=== PATIENT | male | born 1990 | race Caucasian/White ===

== ENCOUNTER 2020-01-21 18:05 | Emergency (ER) | payer OTHER, SELFPAY ==
[2020-01-21 18:51] VITALS: BP 141/87; PULSE 73; RESP 20; TEMP 37.1; O2SAT 99
[2020-01-21 18:57] VITALS: BP 142/87; PULSE 73; RESP 20; TEMP 37.1; O2SAT 99; BMI 36.5
--- NOTE | 2020-01-21 19:13 | CT_ITS ---
EXAMINATION: CT SOFT TISSUE NECK WITH CONTRAST CLINICAL INFORMATION: Sore throat. Swelling of the left side. Concern for peritonsillar disease. COMPARISON: Cervical spine CT from 08/26/2019. TECHNIQUE: Multidetector helical imaging was performed in the axial plane following the administration of 60 mL of Omnipaque 350 intravenous contrast. Multiple axial reformats and coronal/sagittal reconstructions were created the technologist workstation for review. This CT examination was performed using dose optimization techniques as appropriate, variously including the following: *Automated exposure control. *Adjustment of mA and/or kV according to patient size (this includes techniques or standardized protocols for targeted exams where dose is matched to indication/reason for exam; i.e. extremities or head). *Use of iterative reconstruction technique. DLP: 630 mGy-cm FINDINGS: Moderate heterogeneous expansion of the left greater than right palatine tonsils. There is phlegmonous fat stranding surrounding the left palatine tonsils with edema of the left greater than right aspects of the soft palate end fat stranding extending into the left parapharyngeal adipose tissue and left submandibular space. No discrete drainable fluid collection demonstrated. No focal lesions demonstrated. No discrete fluid collection within the deep tissues of the neck. The premaxillary, retromaxillary, pterygopalatine fossa, orbital apical, right parapharyngeal, and prelaryngeal adipose tissue is maintained. Normal appearance of the parotid, submandibular, and thyroid glands. Mild to moderately prominent lymph nodes throughout the cervical chains. Level IIa lymph nodes measure up to 2.1 cm on the right and 1.5 cm on the left. Level IIb lymph nodes measure up to 1.8 cm on the right. Level 3 lymph nodes measure up to 1.7 cm on the left. No demonstrated focal lesion or abnormal enhancement within the intrinsic tissues of the tongue or floor of mouth. No focal mass lesion along the mucosal contours of the pharynx and larynx without abnormal enhancement. There is medialization of the right-sided vocal cord and aryepiglottic folds with asymmetric enlargement of the right piriform sinus. Normal appearance of the hyoid bone, thyroid cartilage, or cartilaginous trachea. There is narrowing of the nasopharyngeal airway. Otherwise, the airway remains widely patent. No radiopaque foreign bodies. The atlantooccipital and atlantoaxial articulations remain well aligned. Straightening of the normal cervical lordosis. Otherwise, there is anatomic alignment of the vertebral bodies and posterior elements. No evidence of acute fracture or subluxation of the cervical spine. The vertebral body heights are maintained. The intervertebral disc spaces are maintained. No evidence of epidural collection. There is no prevertebral soft tissue swelling. No retropharyngeal collection. Normal opacification of the cervical arterial and venous structures. The visualized portion of the skull base is without significant abnormalities. The visualized paranasal sinuses are clear. Mild rightward deviation of the nasal septum. The mastoid air cells and middle ear cavities are clear. No demonstrated significant periapical odontogenic disease. CT Upper Chest: The visualized lung apices and upper mediastinum are within normal limits. IMPRESSION: Moderate edematous expansion of the left greater than right palatine tonsils and soft palate. Phlegmonous soft tissue edema extends into the left parapharyngeal and submandibular spaces. No discrete drainable fluid collection or mass lesion demonstrated. Moderate bilateral cervical chain lymphadenopathy. There is medialization of the right-sided vocal cord suggestive of vocal cord paresis.
[2020-01-21 20:19] LABS: MANUAL DIFF FLAG NO
[2020-01-21 20:20] LABS: Basophils Percent Auto 0.1 % (0-2); Eosinophils Absolute Auto 0.1 X10*3/uL (0.0-0.4); Eosinophils Percent Auto 0.8 % (0-4); Hematocrit 43.5 % (42-52); Hemoglobin 13.9 g/dl (14.0-18.0); Imm Gran Abs Auto 0.03 X10*3/uL (0.00-0.03); Imm Gran Pct Auto 0.3 % (0.0-0.4); Lymphocytes Absolute Auto 2.6 X10*3/uL (1.2-4.9); Lymphocytes Percent Auto 23.6 % (20-40); Mean Corpuscular Volume 87.5 fL (80-98); Mean Platelet Volume 10.7 fL (9.4-12.4); Monocytes Absolute Auto 0.7 X10*3/uL (0.1-1.2); Neutrophils Absolute Auto 7.7 X10*3/uL (2.0-8.3); Neutrophils Percent Auto 69.2 % (45-73); Platelet Count 243 X10*3/uL (160-400); Red Blood Count 4.97 X10*6/uL (4.60-5.80); Red Cell Distribution Width 12.8 % (11.0-16.0); White Blood Count 11.1 X10*3/uL (4.8-10.8)
--- NOTE | 2020-01-21 20:24 | ED.URI ---
HPI - URI/Sore Throat General Chief Complaint: Upper Respiratory Symptoms Stated Complaint: SORE THROAT Time Seen by Provider: 01/21/20 18:57 Source: patient Mode of arrival: ambulatory Limitations: no limitations History of Present Illness HPI Narrative: 29yoM c PMHx of asthma presenting to the ED c c/o sore throat x 2 days worse today. Denies any other symptoms complaints of concerns at this time. Related Data Allergies Allergy/AdvReac Type Severity Reaction Status Date / Time Penicillins [PENICILLINS] Allergy Intermediate Facial Verified 01/21/20 19:00 Swelling Review of Systems Review of Systems: Constitutional : No Fever, No Chills, No fatigue, No Malaise ENT/Mouth : No runny nose Eyes: No Discharge Cardiovascular : No Chest Pain, No SOB Respiratory : No Cough, No Sputum, No Wheezing, No Smoke Exposure, No Dyspnea Gastrointestinal : No Nausea, No Vomiting, No Diarrhea Genitourinary : No irregular bleeding, No Dysuria, No Urinary Frequency, No Hematuria, No Urinary Incontinence, No Urgency, No Flank Pain, Musculoskeletal : No Myalgia Skin : No rash Neuro : No Headache Yes all other systems are reviewed and are negative [facility] Past Medical History Attestation statement: The following information was validated with the patient. Medical History Asthma Crushing skull injury Social History Social History Advance Directives: No Advance Directives Information Provided: No Physical Exam Vital Signs: Vital Signs: Vital Signs Temp Pulse Resp BP Pulse Ox 01/21/20 18:57 98.8 F 73 20 142/87 H 99 01/21/20 18:51 98.8 F 73 20 141/87 H 99 Body Mass Index 36.5 Vital signs have been reviewed as normal and appeared to be correct. Blood pressure normal. Heart rate normal. Respiration rate normal. Temperature normal. Oxygen saturation normal. Appearance: Alert. Oriented X3. No acute distress. Head: Normal external exam. Normocephalic. Atraumatic. No Gallegos signs noted. No raccoon eyes noted Eyes: PERRLA. EOMI. Conjunctiva and sclera normal. Eyelids normal. ENT: EAC normal. TM's Normal. Posterior pharynx with moderate erythema and scattered exudate. Uvula appears shifted to the left side. Moist mucous membranes. No trismus noted. No drooling noted. No muffled voice noted. Neck: Normal inspection. Neck supple. FROM. No adenopathy. Thyroid Normal. No meningeal signs. No neck mass noted. CVS: Normal heart rate and rhythm. Heart sound normal. No murmurs noted. Pulses normal throughout. Respiratory: No respiratory distress. Painless inspiration. Breath sounds normal. No wheezes/rales/rhonchi noted. Chest nontender. No accessory muscle usage noted or decreased air movement noted. Abdomen: Soft and nontender. Bowel sounds normal in all 4 quadrants. No distention noted. No organomegaly noted. No visible injury noted. Back: No CVA tenderness. Full range of motion noted. Skin: Skin warm and dry. Normal skin color. Normal skin turgor. No rashes/lesions/lacerations noted. Extremities: No lower extremity edema. Extremities exhibit normal range of motion. Extremities nontender. Neuro: Oriented X 3. No motor deficit. No sensory deficit. Reflexes normal. Course Course Course Narrative: 29yoM c PMHx of asthma presenting to the ED c c/o sore throat x 2 days worse today. Denies any other symptoms complaints of concerns at this time. - Plan: Labs, Blood cultures, lactic acid. obtain a CT scan of soft tissues to evaluate for possible peritonsillar abscess. Obtain a rapid strep. Provide IVF's IV clindamycin and decadron Then re-evaluate. Reevaluation(s) Reevaluation #1: Patient with an elevated white blood cell count otherwise all other labs are within normal limits. Awaiting CT scan of soft tissue neck to evaluate for possible peritonsillar abscess. Will re-evaluate. MDM - URI/Sore Throat MDM Narrative Medical decision making narrative: Bacterial pharyngitis vs peritonsillar abscess Lab Data Attestation: I reviewed the patient's lab results. Result diagrams: 01/21/20 20:08 01/21/20 20:08 Labs: Lab Results 01/21/20 01/21/20 01/21/20 Range/Units 20:08 20:08 20:08 WBC 11.1 H (4.8-10.8) X10*3/uL RBC 4.97 (4.60-5.80) X10*6/uL Hgb 13.9 L (14.0-18.0) g/dl Hct 43.5 (42-52) % MCV 87.5 (80-98) fL MCH 28.0 (27.0-33.0) pg MCHC 32.0 (31.0-36.0) g/dl RDW 12.8 (11.0-16.0) % Plt Count 243 (160-400) X10*3/uL MPV 10.7 (9.4-12.4) fL Immature Gran % (Auto) 0.3 (0.0-0.4) % Neut % (Auto) 69.2 (45-73) % Lymph % (Auto) 23.6 (20-40) % [place] % (Auto) 6.0 (2-11) % Eos % (Auto) 0.8 (0-4) % Baso % (Auto) 0.1 (0-2) % Lymph # (Auto) 2.6 (1.2-4.9) X10*3/uL [place] # (Auto) 0.7 (0.1-1.2) X10*3/uL Eos # (Auto) 0.1 (0.0-0.4) X10*3/uL Baso # (Auto) 0.0 (0.0-0.2) X10*3/uL Abs Immat Gran (auto) 0.03 (0.00-0.03) X10*3/uL Absolute Neuts (auto) 7.7 (2.0-8.3) X10*3/uL Absolute Nucleated RBC 0.000 (0.0-0.012) X10*3/uL Nucleated RBC % (auto) 0.0 (0.0-0.2) /100WBC PT 11.3 (10.8-13.0) SEC INR 1.0 (0.9-1.1) Sodium (135-145) mmol/L Potassium (3.3-5.1) mmol/l Chloride (96-108) mmol/L Carbon Dioxide (22-29) mmol/L Anion Gap (12-20) BUN (9-16) mg/dL Creatinine (0.5-1.4) mg/dL Estim Creat Clear Calc Estimated GFR Random Glucose (60-115) mg/dL Lactic Acid 1.0 (0.5-2.0) mmol/L Calcium (8.4-10.2) mg/dL 01/21/20 Range/Units 20:08 WBC (4.8-10.8) X10*3/uL RBC (4.60-5.80) X10*6/uL Hgb (14.0-18.0) g/dl Hct (42-52) % MCV (80-98) fL MCH (27.0-33.0) pg MCHC (31.0-36.0) g/dl RDW (11.0-16.0) % Plt Count (160-400) X10*3/uL MPV (9.4-12.4) fL Immature Gran % (Auto) (0.0-0.4) % Neut % (Auto) (45-73) % Lymph % (Auto) (20-40) % [place] % (Auto) (2-11) % Eos % (Auto) (0-4) % Baso % (Auto) (0-2) % Lymph # (Auto) (1.2-4.9) X10*3/uL [place] # (Auto) (0.1-1.2) X10*3/uL Eos # (Auto) (0.0-0.4) X10*3/uL Baso # (Auto) (0.0-0.2) X10*3/uL Abs Immat Gran (auto) (0.00-0.03) X10*3/uL Absolute Neuts (auto) (2.0-8.3) X10*3/uL Absolute Nucleated RBC (0.0-0.012) X10*3/uL Nucleated RBC % (auto) (0.0-0.2) /100WBC PT (10.8-13.0) SEC INR (0.9-1.1) Sodium 143 (135-145) mmol/L Potassium 3.5 (3.3-5.1) mmol/l Chloride 107 (96-108) mmol/L Carbon Dioxide 27 (22-29) mmol/L Anion Gap 13 (12-20) BUN 10 (9-16) mg/dL Creatinine 1.00 (0.5-1.4) mg/dL Estim Creat Clear Calc 130.4 Estimated GFR > 60 Random Glucose 91 (60-115) mg/dL Lactic Acid (0.5-2.0) mmol/L Calcium 8.9 (8.4-10.2) mg/dL
[2020-01-21 20:26] LABS: Prothrombin Time 11.3 SEC (10.8-13.0)
[2020-01-21] MEDS: Clindamycin Phosphate/D5W 600 MG/50 ML PIGGYBACK 100 MG IV (20:26)
[2020-01-21] MEDS: 0.9 % Sodium Chloride 1,000 ML 999 ML IVCONT (20:27)
[2020-01-21 20:43] LABS: Anion Gap 13 (12-20); Blood Urea Nitrogen 10 mg/dL (9-16); Calcium 8.9 mg/dL (8.4-10.2); Carbon Dioxide 27 mmol/L (22-29); Chloride 107 mmol/L (96-108); Creatinine Clr Calc Pharmacy 130.4; Estimated Glomerular Filt Rate > 60; Glucose Random 91 mg/dL (60-115); Potassium 3.5 mmol/l (3.3-5.1); Sodium 143 mmol/L (135-145)
[2020-01-21] MEDS: iohexoL 350 MG/ML 100 ML INFUS..BTL IV (20:58)
[2020-01-21 22:13] VITALS: BP 134/76; PULSE 70; RESP 18; TEMP 37.7; O2SAT 99
[2020-01-21] MEDS: dexAMETHasone 2 MG TABLET 10 MG PO (23:27)
== END 2020-01-21 23:41 | disposition home or self-care (01) ==
PROVIDERS: Physician Assistant Medical; Emergency Provider Emergency Medicine
DX: J36 Peritonsillar abscess (principal); J45.909 Unspecified asthma, uncomplicated
CPT/HCPCS: 36415; 70491; 80048; 83605; 85025; 85610; 87040; 87071; 96365; 99284; J8540

== ENCOUNTER 2020-08-24 00:14 | Emergency (ER) | payer MEDICAID, SELFPAY ==
--- NOTE | ~2020-08-24 | CT_ITS ---
EXAMINATION: CT ABDOMEN AND PELVIS WITH CONTRAST CLINICAL INFORMATION: Abdominal pain COMPARISON: None TECHNIQUE: Multidetector volumetric images were obtained from the superior aspect of the liver through the pubic symphysis following administration 85 mL of Omnipaque 350 intravenous contrast. Sagittal and coronal reformatted images were obtained on the technologist's workstation. Oral contrast: No This CT examination was performed using dose optimization techniques as appropriate, variously including the following: *Automated exposure control *Adjustment of mA and/or kV according to patient size (this includes techniques or standardized protocols for targeted exams where dose is matched to indication/reason for exam; i.e. extremities or head) *Use of iterative reconstruction technique DLP: 757 mGy-cm FINDINGS: LUNG BASES: The visualized lung bases are unremarkable. LIVER, GALLBLADDER, AND BILIARY TREE: The liver demonstrates hypoattenuation consistent with steatosis. No biliary ductal dilatation is present. The gallbladder is unremarkable with no evidence of radiopaque gallstones, gallbladder wall thickening, or obvious pericholecystic inflammatory changes. PANCREAS: Unremarkable. SPLEEN: Unremarkable. ADRENAL GLANDS: Unremarkable. KIDNEYS AND URETERS: The kidneys are normal in size, shape, and attenuation. No hydronephrosis, hydroureter, or obstructing calculi seen. No perinephric stranding. BLADDER: Minimally distended and grossly unremarkable. GASTROINTESTINAL TRACT: There is a thick-walled appearance of the ascending, transverse, and to a lesser degree the descending colon consistent with colitis. No evidence of bowel obstruction. The appendix is unremarkable. No free fluid or free air is seen. ABDOMINAL WALL: No significant hernia is appreciated. LYMPH NODES: Scattered mesenteric and retroperitoneal subcentimeter lymph nodes are present, without significant enlargement by size criteria. VASCULAR: Unremarkable. PELVIC VISCERA: Unremarkable. OSSEOUS STRUCTURES: Unremarkable. CT/CT abdomen pelvis w con IMPRESSION: Thick-walled appearance of the ascending, transverse, and to a lesser degree the descending colon, consistent with colitis which may be infectious or inflammatory.
[2020-08-24 01:56] VITALS: BP 112/81; PULSE 71; RESP 16; TEMP 36.6; O2SAT 99; BMI 33.4
[2020-08-24 04:06] LABS: MANUAL DIFF FLAG NO
[2020-08-24 04:18] LABS: Basophils Percent Auto 0.2 % (0-2); Eosinophils Absolute Auto 0.1 X10*3/uL (0.0-0.4); Eosinophils Percent Auto 0.8 % (0-4); Hemoglobin 13.9 g/dl (14.0-18.0); Imm Gran Abs Auto 0.02 X10*3/uL (0.00-0.03); Imm Gran Pct Auto 0.2 % (0.0-0.4); Lymphocytes Absolute Auto 1.9 X10*3/uL (1.2-4.9); Lymphocytes Percent Auto 21.8 % (20-40); Mean Corpuscular HGB Conc 33.1 g/dl (31.0-36.0); Mean Corpuscular Hemoglobin 28.3 pg (27.0-33.0); Mean Corpuscular Volume 85.5 fL (80-98); Mean Platelet Volume 10.7 fL (9.4-12.4); Monocytes Absolute Auto 0.8 X10*3/uL (0.1-1.2); Monocytes Percent Auto 8.7 % (2-11); Neutrophils Percent Auto 68.3 % (45-73); Platelet Count 243 X10*3/uL (160-400); Red Blood Count 4.91 X10*6/uL (4.60-5.80); Red Cell Distribution Width 12.9 % (11.0-16.0); White Blood Count 8.8 X10*3/uL (4.8-10.8)
--- NOTE | 2020-08-24 04:28 | ED.ABDPAIN ---
HPI - Abdominal Pain General Chief Complaint: Abdominal Pain Stated Complaint: abd pain Time Seen by Provider: 08/24/20 01:56 Source: patient Mode of arrival: ambulatory History of Present Illness HPI narrative: This is a 30-year-old male who presents with abdominal discomfort that he describes is sharp and crampy and started yesterday. This is not been associated with any fever, chills, or vomiting but patient has had some mild nausea and several episodes of nonbloody diarrhea. In addition, patient denies any urinary symptoms. He states that he has had this abdominal discomfort previously when he was a child with a ?viral bug?. In addition, patient denies any alcohol use but states that he has smokes marijuana with the last use a few hours prior to presentation. He denies any abdominal surgery history. Related Data Previous Rx's Medication Instructions Recorded acetaminophen [Tylenol Extra 500 mg PO Q6H PRN #20 tab 01/21/20 Strength] clindamycin HCl 450 mg PO Q8H 10 Days #45 cap 01/21/20 ibuprofen 800 mg PO Q8H 7 Days #21 tab 01/21/20 ondansetron HCl [Zofran] 4 mg PO Q8H PRN #7 tab 08/24/20 Allergies Allergy/AdvReac Type Severity Reaction Status Date / Time Penicillins [PENICILLINS] Allergy Intermediate Facial Verified 01/21/20 19:00 Swelling Review of Systems Review of Systems Pertinent positives and negatives as stated in HPI 10 point review of systems is otherwise negative. Physical Exam Vital Signs: Vital Signs: Last Vital Signs Temp 98 F 08/24/20 01:56 Pulse 57 08/24/20 06:00 Resp 18 08/24/20 06:00 BP 120/68 08/24/20 06:00 Pulse Ox 97 08/24/20 06:00 Body Mass Index 33.4 VITAL SIGNS: Reviewed. GENERAL: Well developed, well nourished, in no acute distress. HEAD: Normocephalic/atraumatic EYES: PERRLA, EOMI EARS: Ext canals without abnormality NOSE: Nares patent bilateral OROPHARYNX: no oral lesions noted, posterior pharynx clear NECK: Supple, no adenopathy LUNGS: Normal breath sounds. No adventitious sounds or accessory muscle use. SpO2<99> CARDIOVASCULAR: Regular rate and rhythm without noted murmurs ABDOMEN: Soft, diffusely tender without rebound, non-distended with bowel sounds. NEUROLOGIC: Alert and oriented x 4. Course Course Course Narrative: 30-year-old male with history and clinical presentation suggestive of gastroenteritis, and less likely pancreatitis/appendicitis/UTI. Patient has had no further episodes of diarrhea and CT scan findings consistent with a rios colitis without leukocytosis. Review of all investigations without acute findings other than colitis, although patient has had no further diarrheal episodes or nausea/vomiting. He was informed of all results and findings and instructed to follow-up with his primary care provider by calling the office today. Patient is tolerating oral intake and will be discharged with supplemental Zofran to use p.r.n.. MDM - Abdominal Pain Lab Data Result diagrams: 08/24/20 04:02 08/24/20 04:02 Labs: Lab Results 08/24/20 08/24/20 08/24/20 Range/Units 04:02 04:02 06:26 WBC 8.8 (4.8-10.8) X10*3/uL RBC 4.91 (4.60-5.80) X10*6/uL Hgb 13.9 L (14.0-18.0) g/dl Hct 42.0 (42-52) % MCV 85.5 (80-98) fL MCH 28.3 (27.0-33.0) pg MCHC 33.1 (31.0-36.0) g/dl RDW 12.9 (11.0-16.0) % Plt Count 243 (160-400) X10*3/uL MPV 10.7 (9.4-12.4) fL Immature Gran % (Auto) 0.2 (0.0-0.4) % Neut % (Auto) 68.3 (45-73) % Lymph % (Auto) 21.8 (20-40) % Josephine % (Auto) 8.7 (2-11) % Eos % (Auto) 0.8 (0-4) % Baso % (Auto) 0.2 (0-2) % Lymph # (Auto) 1.9 (1.2-4.9) X10*3/uL Josephine # (Auto) 0.8 (0.1-1.2) X10*3/uL Eos # (Auto) 0.1 (0.0-0.4) X10*3/uL Baso # (Auto) 0.0 (0.0-0.2) X10*3/uL Abs Immat Gran (auto) 0.02 (0.00-0.03) X10*3/uL Absolute Neuts (auto) 6.0 (2.0-8.3) X10*3/uL Absolute Nucleated RBC 0.000 (0.0-0.012) X10*3/uL Nucleated RBC % (auto) 0.0 (0.0-0.2) /100WBC Sodium 141 (135-145) mmol/L Potassium 3.8 (3.3-5.1) mmol/L Chloride 105 (96-108) mmol/L Carbon Dioxide 26 (22-29) mmol/L Anion Gap 14 (12-20) BUN 12 (9-16) mg/dL Creatinine 1.04 (0.5-1.4) mg/dL Estim Creat Clear Calc 118.9 Estimated GFR > 60 Random Glucose 100 (60-115) mg/dL Calcium 9.9 D (8.4-10.2) mg/dL Total Bilirubin 0.4 (0.0-1.0) mg/dL AST 25 (5-37) U/L ALT 43 H (0-40) U/L Alkaline Phosphatase 66 (39-117) U/L Total Protein 7.5 (6.5-8.0) g/dL Albumin 4.4 (3.5-5.0) g/dL Lipase 13 (8-78) U/L Urine Color YELLOW Urine Appearance CLEAR Urine pH 6.0 (5.0-8.0) Ur Specific [place] 1.025 (1.005-1.025) Urine Protein NEG (NEG-TRACE) MG/DL Urine Glucose (UA) NEG (NEG) MG/DL Urine Ketones NEG (NEG) MG/DL Urine Blood TRACE (NEG) Urine Nitrite NEG (NEG) Ur Leukocyte Esterase NEG (NEG) Discharge Plan Discharge Clinical Impression: Colitis Patient Disposition: Home, Self-Care Instructions: Colitis (ED) Additional Instructions: 1. Increase hydration especially with water and combine with Gatorade. 2. Follow-up with your primary care provider by calling the office this morning to set up an appointment for re-evaluation. 3. Use [id number] Tylenol/ibuprofen as needed for symptom relief. Return to the emergency room for any acute worsening of your symptoms. Prescriptions: New ondansetron HCl [Zofran] 4 mg tablet 4 mg PO Q8H PRN (Reason: nausea and vomiting) Qty: 7 RF: 0 No Action clindamycin HCl 300 mg capsule 450 mg PO Q8H 10 Days Qty: 45 RF: 0 ibuprofen 800 mg tablet 800 mg PO Q8H 7 Days Qty: 21 RF: 0 acetaminophen [Tylenol Extra Strength] 500 mg tablet 500 mg PO Q6H PRN (Reason: pain or fever) Qty: 20 RF: 0 Referrals: Physician,None [Primary Care Provider] - 2 days Stand Alone Forms: Work/School Release [facility] Past Medical History Source: nursing notes reviewed Medical History Asthma Crushing skull injury Social History Social History Advance Directives: No Advance Directives Information Provided: No
[2020-08-24 04:41] LABS: Alanine Aminotransferase 43 U/L (0-40); Albumin Level 4.4 g/dL (3.5-5.0); Alkaline Phosphatase 66 U/L (39-117); Anion Gap 14 (12-20); Aspartate Amino Transferase 25 U/L (5-37); Bilirubin Total 0.4 mg/dL (0.0-1.0); Blood Urea Nitrogen 12 mg/dL (9-16); Calcium 9.9 mg/dL (8.4-10.2); Carbon Dioxide 26 mmol/L (22-29); Chloride 105 mmol/L (96-108); Creatinine Clr Calc Pharmacy 118.9; Estimated Glomerular Filt Rate > 60; Glucose Random 100 mg/dL (60-115); Lipase 13 U/L (8-78); Potassium 3.8 mmol/L (3.3-5.1); Sodium 141 mmol/L (135-145); Total Protein 7.5 g/dL (6.5-8.0)
[2020-08-24] MEDS: Ketorolac Tromethamine 15 MG/ML VIAL IVPUSH (04:56)
[2020-08-24 06:00] VITALS: BP 120/68; PULSE 57; RESP 18; O2SAT 97
[2020-08-24] MEDS: iohexoL 350 MG/ML 100 ML INFUS..BTL 85 ML IV (06:02)
[2020-08-24 06:38] LABS: Glucose Urine UA NEG (NEG); Leukocyte Esterase Urine NEG (NEG); Nitrite Urine NEG (NEG); Specific Gravity - Urine 1.025 (1.005-1.025); Urine Blood TRACE (NEG); Urine Ketones NEG (NEG); Urine Protein NEG (NEG-TRACE)
[2020-08-24 06:43] LABS: Appearance Urine CLEAR; Color Urine YELLOW
[2020-08-24 06:51] LABS: Mucus Urine TRACE /LPF; RBC Urine 0-2 /HPF (0); Squamous Epithelial Cell Urine TRACE /LPF; WBC Urine 0 /HPF (0-4)
[2020-08-24 07:03] LABS: Amphetamine Screen Urine Not Detected (Not Detect); Barbiturates, Urine Not Detected (Not Detect); Benzodiazepines Screen Urine Not Detected (Not Detect); Cannabinoid Screen Urine POSITIVE (Not Detect); Cocaine Screen Urine POSITIVE (Not Detect); Opiate Screen Urine Not Detected (Not Detect); Phencyclidine Screen Urine Not Detected (Not Detect)
[2020-08-24 07:19] VITALS: BP 132/73; PULSE 62; RESP 17; TEMP 37; O2SAT 99
== END 2020-08-24 07:27 | disposition home or self-care (01) ==
PROVIDERS: Emergency Provider Student in an Organized Health Care Education/Training Program
DX: K52.9 Noninfective gastroenteritis and colitis, unspecified (principal); Z79.899 Other long term (current) drug therapy
CPT/HCPCS: 36415; 74177; 80053; 80307; 81001; 83690; 85025; 96365; 96375; 99284; J1885; Q9967

== ENCOUNTER 2020-10-31 14:19 | Emergency (ER) | payer MEDICAID, SELFPAY ==
[2020-10-31 14:50] VITALS: BP 116/75; PULSE 82; RESP 18; TEMP 36.8; O2SAT 98; BMI 34.0
== END 2020-10-31 16:54 | disposition left against medical advice (07) ==
PROVIDERS: Emergency Provider Emergency Medicine
DX: S71.152A Open bite, left thigh, initial encounter (principal); W54.0XXA Bitten by dog, initial encounter; Y93.01 Activity, walking, marching and hiking; Y92.480 Sidewalk as the place of occurrence of the external cause; Y99.8 Other external cause status
CPT/HCPCS: 99281; 99282

== ENCOUNTER 2020-11-01 07:56 | Emergency (ER) | payer MEDICAID, SELFPAY ==
[2020-11-01 08:21] VITALS: BP 123/76; PULSE 72; RESP 16; TEMP 37; O2SAT 98
[2020-11-01 09:10] VITALS: BP 108/69; PULSE 63; RESP 16; TEMP 36.7; O2SAT 97; BMI 32.4
--- NOTE | 2020-11-01 09:16 | ED.ANIMALBIT ---
HPI - Animal Bite General Chief Complaint: Animal Bite Stated Complaint: dog bite Time Seen by Provider: 11/01/20 09:13 Source: patient Mode of arrival: ambulatory Limitations: no limitations History of Present Illness HPI narrative: 30 yo male here with dog bite to left posterior thigh which occurred yesterday. Walking in the park and an unknown dog came and chased him, biting his leg. Dog unknown. Here for rabies series. Last tetanus unknown MD complaint: animal bite Related Data Previous Rx's Medication Instructions Recorded acetaminophen 500 mg tablet 500 mg PO Q6H PRN #20 tab 01/21/20 (Tylenol Extra Strength) clindamycin HCl 300 mg capsule 450 mg PO Q8H 10 Days #45 cap 01/21/20 ibuprofen 800 mg tablet 800 mg PO Q8H 7 Days #21 tab 01/21/20 ondansetron HCl 4 mg tablet 4 mg PO Q8H PRN #7 tab 08/24/20 (Zofran) Allergies Allergy/AdvReac Type Severity Reaction Status Date / Time Penicillins [PENICILLINS] Allergy Intermediate Facial Verified 11/01/20 09:15 Swelling Review of Systems Review of Systems: Yes all other systems are reviewed and are negative Constitutional: Constitutional: Reports no additional constitutional complaints, Denies body ache(s), Denies chills, Denies fever(s), Denies headache(s) and Denies weakness Eyes: Eyes: Reports no additional eye complaints and Denies change in vision ENT: Reports system reviewed and no additional complaints, except as documented, Denies dizziness, Denies headache(s), Denies nasal congestion, Denies nasal discharge and Denies neck pain Cardiovascular: Cardiovascular: Reports no additional cardiovascular complaints, Denies chest pain, Denies leg edema and Denies dyspnea Respiratory: Respiratory: Reports no additional respiratory complaints, Denies cough and Denies dyspnea Gastrointestinal: Gastrointestinal: Reports no additional gastrointestinal complaints, Denies abdominal pain, Denies diarrhea, Denies nausea and Denies vomiting Genitourinary: Genitourinary: Denies urinary incontinence Musculoskeletal: Musculoskeletal: Reports no additional musculoskeletal complaints, Denies back pain, Denies arthralgias, Denies joint swelling, Denies neck pain, Denies numbness and Denies tingling Integumentary/Breasts: Skin/Breast: Reports system reviewed and no additional complaints, except as docu and Denies rash Neurologic: Reports system reviewed and no additional complaints, except as documented, Denies Abnormal speech present, Denies dizziness, Denies headache(s), Denies numbness, Denies tingling and Denies weakness PMFSH Past Medical History Attestation statement: The following information was validated with the patient. Source: old records reviewed and nursing notes reviewed Medical History Asthma Crushing skull injury Social History Social History Advance Directives: No Advance Directives Information Provided: No Physical Exam Vital Signs: Vital Signs: Last Vital Signs Temp 98.0 F 11/01/20 09:10 Pulse 63 11/01/20 09:10 Resp 16 11/01/20 09:10 BP 108/69 11/01/20 09:10 Pulse Ox 97 11/01/20 09:10 Body Mass Index 32.4 Const: General: cooperative, healthy appearing, comfortable and no acute distress Orientation/consciousness: patient oriented x3 Limitations: no limitations HENMT: Head: Yes normal to inspection Ears: hearing grossly normal bilaterally General nose exam: Normal external nose present Face and sinus: Yes normal facial exam Mouth: Normal oral and palatal mucosa present Throat: Yes posterior oropharynx normal Eyes: General: appearance normal, both eyes and all related structures Pupils: Equal, round and reactive pupils present Neck: Neck: Yes normal visual inspection Chest: Chest palpation & inspection: normal inspection of the chest Resp: Effort & Inspection: normal respiratory effort Auscultation: clear to auscultation bilaterally Cardio: Rate: regular rate Rhythm: regular rhythm Peripheral pulses: Peripheral pulses 2+ throughout GI: Inspection: Yes normal to inspection Palpation (GI): Soft to palpation and nontender Auscultation: normal bowel sounds Back/Spine/Pelvis: Thoracic/Lumbar Spine: thoracic and lumbar spine normal to inspection Skin: General skin exam: no rashes or lesions noted Neuro: General: patient oriented x3, no focal motor deficits and normal sensation to monofilament Cranial nerves: Yes Equal, round and reactive pupils present Cognition (Neuro): normal cognition Speech: No Abnormal speech present Gait exam (Neuro): Normal gait present Motor exam (neuro): 5/5 motor strength present throughout Extrem: Other: to posterior left upper thigh there is a small area of ecchymosis noted with 2 ?bite juarez. General: Yes normal to inspection Course Course Course Narrative: Dog bite from stray dog yesterday. Will need hyperrab, rabies vaccine and tetanus updated. MDM - Animal Bite Differential Diagnosis Differential diagnosis: Likely dog bite Medical Records Attestation: I reviewed the patient's medical records. Lab Data Attestation: I reviewed the patient's lab results. Discharge Plan Discharge Clinical Impression: Dog bite Qualifiers: Encounter type: initial encounter Qualified Code(s): W54.0XXA - Bitten by dog, initial encounter Patient Disposition: Home, Self-Care Instructions: Rabies Vaccine (By injection), Rabies Immune Globulin (By injection), Animal Bite (ED), Rabies (ED) Additional Instructions: Follow schedule for additional doses of rabies vaccine Prescriptions: No Action clindamycin HCl 300 mg capsule 450 mg PO Q8H 10 Days Qty: 45 RF: 0 ibuprofen 800 mg tablet 800 mg PO Q8H 7 Days Qty: 21 RF: 0 acetaminophen [Tylenol Extra Strength] 500 mg tablet 500 mg PO Q6H PRN (Reason: pain or fever) Qty: 20 RF: 0 ondansetron HCl [Zofran] 4 mg tablet 4 mg PO Q8H PRN (Reason: nausea and vomiting) Qty: 7 RF: 0 Referrals: [facility] [Primary Care Provider] - 2 days Interventions: ED Discharge Assessment Last Done: 11/01/20 11:01 Discharge Date/Time: 11/01/20 11:03
[2020-11-01] MEDS: Rabies Immune Globulin/PF 1,500 UNIT/5 ML VIAL 1992 UNIT IM (10:38)
[2020-11-01] MEDS: Rabies Vaccine (PCEC)/PF 1 ML VIAL IM (10:39)
[2020-11-01] MEDS: Diphth,Pertus(ACell),Tet Adult 0.5 ML SYRINGE IM (10:44)
== END 2020-11-01 11:03 | disposition home or self-care (01) ==
PROVIDERS: Emergency Provider Emergency Medicine
DX: S71.152A Open bite, left thigh, initial encounter (principal); M79.605 Pain in left leg; W54.0XXA Bitten by dog, initial encounter; Y93.9 Activity, unspecified; Y92.830 Public park as the place of occurrence of the external cause; Y99.9 Unspecified external cause status; Z79.899 Other long term (current) drug therapy
CPT/HCPCS: 90375; 90471; 90675; 90715; 96372; 99284

== ENCOUNTER 2020-11-04 09:53 | Outpatient (REF) | payer MEDICAID, SELFPAY | END 2020-11-04 09:54 | disposition home or self-care (01) | LOC: HO.MDS 09:53 | PROVIDERS: Visit Provider Nurse Practitioner Family | DX: Z29.14 Encounter for prophylactic rabies immune globulin (principal); S70.372D Other superficial bite of left thigh, subsequent encounter; W54.0XXD Bitten by dog, subsequent encounter; Z20.3 Contact with and (suspected) exposure to rabies | CPT/HCPCS: 90471; 90675 ==

== ENCOUNTER 2020-11-08 13:52 | Outpatient (REF) | payer MEDICAID, SELFPAY | END 2020-11-08 13:53 | disposition home or self-care (01) | LOC: HO.MDS 13:52 | PROVIDERS: Visit Provider Nurse Practitioner Family | DX: Z29.14 Encounter for prophylactic rabies immune globulin (principal); S71.152D Open bite, left thigh, subsequent encounter; W54.0XXD Bitten by dog, subsequent encounter; Z20.3 Contact with and (suspected) exposure to rabies | CPT/HCPCS: 90471; 90675 ==

== ENCOUNTER 2021-01-23 13:20 | Outpatient (REF) | payer MEDICAID, SELFPAY | END 2021-01-23 13:21 | disposition home or self-care (01) | LOC: HO.LAB 13:20 | PROVIDERS: Visit Provider Internal Medicine | DX: Z20.822 Contact with and (suspected) exposure to COVID-19 (principal) | CPT/HCPCS: C9803; U0003; U0005 ==

== ENCOUNTER 2021-05-02 15:24 | Outpatient (REF) | payer BC, SELFPAY ==
--- NOTE | ~2021-05-02 | US_ITS ---
EXAMINATION: US SOFT TISSUE NECK CLINICAL INFORMATION: Localized swelling, mass or lump COMPARISON: Previous CT of the neck January 2020 TECHNIQUE: Grayscale and color imaging of the soft tissues of the left neck. FINDINGS: There are abnormal appearing left cervical lymph nodes. Largest lymph node measures 3.8 x 6.2 x 2.8 cm in transverse longitudinal and AP dimension. This demonstrates abnormal morphology with cortical thickening and slitlike hilum and abnormal cortical flow. There are other smaller left cervical lymph nodes. This is new or increased compared to January 2020 exam. US/US soft tiss head and/or neck IMPRESSION: Enlarged abnormal appearing left cervical lymph nodes. Neoplastic process should be excluded. This would be amenable to ultrasound-guided biopsy.
== END 2021-05-02 15:25 | disposition home or self-care (01) ==
LOC: HO.US 15:24
PROVIDERS: PCP Family Medicine; Visit Provider Hospitalist
DX: R13.10 Dysphagia, unspecified (principal); R22.1 Localized swelling, mass and lump, neck
CPT/HCPCS: 76536

== ENCOUNTER 2021-05-03 09:41 | Outpatient (REF) | payer BC, SELFPAY ==
[2021-05-03 10:18] LABS: Hemoglobin 13.9 g/dl (14.0-18.0); Mean Corpuscular HGB Conc 32.3 g/dl (31.0-36.0); Mean Corpuscular Volume 86.5 fL (80.0-98.0); Mean Platelet Volume 10.6 fL (9.4-12.4); Platelet Count 263 X10*3/uL (160-400); Red Blood Count 4.97 X10*6/uL (4.60-5.80); Red Cell Distribution Width 12.9 % (11.0-16.0); White Blood Count 8.1 X10*3/uL (4.8-10.8)
[2021-05-03 10:42] LABS: Anion Gap 11 (12-20); Blood Urea Nitrogen 11 mg/dL (9-16); Calcium 10.1 mg/dL (8.4-10.2); Carbon Dioxide 31 mmol/L (22-29); Chloride 105 mmol/L (96-108); Estimated Glomerular Filt Rate > 60; Glucose Random 93 mg/dL (60-115); Potassium 4.2 mmol/L (3.3-5.1); Sodium 143 mmol/L (135-145)
== END 2021-05-03 09:42 | disposition home or self-care (01) ==
LOC: HO.LAB 09:41
PROVIDERS: PCP Family Medicine; Visit Provider Hospitalist
DX: R13.10 Dysphagia, unspecified (principal); R22.1 Localized swelling, mass and lump, neck
CPT/HCPCS: 36415; 80048; 85027

== ENCOUNTER 2021-05-08 10:41 | Outpatient (REF) | payer BC, SELFPAY ==
--- NOTE | ~2021-05-08 | US_ITS ---
EXAMINATION: ULTRASOUND-GUIDED BIOPSY LYMPH NODE CLINICAL INFORMATION: Enlarged left cervical lymph node. COMPARISON: Previous soft tissue neck ultrasound 05/02/2021. TECHNIQUE: Procedure and risks and benefits including bleeding and infection were discussed with the patient and informed consent was obtained. Left neck was prepped and draped in the usual sterile fashion. The skin and soft tissues were anesthetized with 1% lidocaine plain. Using ultrasound guidance and a coaxial system, access to the enlarged left cervical lymph node was obtained. 5 18-gauge core biopsies were obtained. 3 specimens were placed in flow cytometry solution and 2 specimens were placed in formalin. FINDINGS: There is an enlarged left lower cervical lymph node measuring 6.3 x 3.1 x 4.1 cm that was targeted for biopsy. US/US biopsy lymph node IMPRESSION: Ultrasound-guided left neck lymph node biopsy.
[2021-05-08] MEDS: Lidocaine HCl 1 % MPF 5 ML VIAL 4 ML SUBCUT (11:45)
== END 2021-05-08 10:42 | disposition home or self-care (01) ==
LOC: HO.US 10:41
PROVIDERS: Radiology Diagnostic Radiology; Visit Provider Family Medicine
DX: R59.0 Localized enlarged lymph nodes (principal)
CPT/HCPCS: 36415; 38505; 76942; 88184; 88185; 88300; 88305; 88312; 88313; 88341; 88342

== ENCOUNTER → 2021-06-12 10:37 | Outpatient (BNVA) | payer BC, SELFPAY | PROVIDERS: PCP Family Medicine; Referring Provider Family Medicine; Visit Provider Surgery ==

== ENCOUNTER 2021-06-24 08:02 | Outpatient (REF) | payer BC, SELFPAY ==
--- NOTE | ~2021-06-24 | CT_ITS ---
CT SOFT TISSUE NECK WITH CONTRAST CLINICAL INFORMATION: Localized swelling. Mass/lump. COMPARISON: Neck CT 01/21/2020. Ultrasound 05/02/2021. TECHNIQUE: Following the intravenous administration of 60 mL of Omnipaque 350 intravenous contrast, helical imaging was performed in the axial plane with generation of coronal and sagittal reformatted images. This CT examination was performed using dose optimization techniques as appropriate, variously including the following: *Automated exposure control *Adjustment of mA and/or kV according to patient size (this includes techniques or standardized protocols for targeted exams where dose is matched to indication/reason for exam; i.e. extremities or head) *Use of iterative reconstruction technique FINDINGS: There is a large mass within level 3 of the left neck measuring up to 3.5 cm TV by 3.8 cm AP by 6.5 cm CC. This previously measured 2.8 cm x 3.8 cm x 6.2 cm on 05/02/2021 ultrasound and 1.2 cm on the neck CT from 01/21/2020. There are also multiple enlarged lymph nodes just below the dominant lesion within level IV and there are nonspecific nonpathologic size criteria lymph nodes throughout the suprahyoid and infrahyoid neck bilaterally. A neoplastic etiology remains of concern. Recommend correlating with the recent biopsy results and follow-up with PET/CT as clinically indicated. The parotid glands are homogeneous in attenuation. The submandibular glands are normal. The thyroid gland is normal. Asymmetric fullness and irregularity of the left palatine tonsil can be correlated with direct visual inspection and PET to exclude a lesion in this location. No retropharyngeal fluid collection is seen. The laryngeal structures are normal. There is mucosal irregularity involving the vallecular mucosal surface of the base of tongue that should be correlated with direct visual inspection. The parapharyngeal fat is preserved. The carotid sheath vasculature opacify normally. The superior mediastinum is unremarkable. The lung apices are clear. No acute or suspicious osseous findings. There is mild mucosal thickening within the right sphenoid sinus and throughout the ethmoid air cells bilaterally as well as within the maxillary sinuses bilaterally. The imaged portions of the brain parenchyma are unremarkable. CT/CT soft tissue neck w con IMPRESSION: - There is a large mass within level 3 of the left neck measuring up to 3.5 cm TV by 3.8 cm AP by 6.5 cm CC. This previously measured 2.8 cm x 3.8 cm x 6.2 cm on 05/02/2021 ultrasound and 1.2 cm on the neck CT from 01/21/2020. There are also multiple enlarged lymph nodes just below the dominant lesion within level IV and there are nonspecific nonpathologic size criteria lymph nodes throughout the suprahyoid and infrahyoid neck bilaterally. A neoplastic etiology remains of concern. Recommend correlating with the recent biopsy results and follow-up with PET/CT as clinically indicated. - Asymmetric fullness and irregularity of the left palatine tonsil can be correlated with direct visual inspection and PET to exclude a lesion in this location. - There is mucosal irregularity involving the vallecular mucosal surface of the base of tongue that should be correlated with direct visual inspection.
[2021-06-24] MEDS: iohexoL 350 MG/ML 100 ML INFUS..BTL 60 ML IV (08:48)
== END 2021-06-24 08:03 | disposition home or self-care (01) ==
LOC: HO.CT 08:02
PROVIDERS: Visit Provider Surgery
DX: R22.1 Localized swelling, mass and lump, neck (principal)
CPT/HCPCS: 70491; Q9967

== ENCOUNTER → 2021-07-11 13:58 | Outpatient (BNVA) | payer BC, SELFPAY | PROVIDERS: PCP Family Medicine; Referring Provider Family Medicine; Visit Provider Surgery | DX: Z13.89 Encounter for screening for other disorder (principal) ==

== ENCOUNTER 2021-08-25 20:14 | Emergency (ER) | payer MEDICAID, SELFPAY ==
[2021-08-25 20:21] VITALS: BP 113/77; PULSE 83; RESP 18; TEMP 36.9; O2SAT 97; BMI 34.9
[2021-08-25 20:38] LABS: Appearance Urine CLEAR; Color Urine YELLOW; Glucose Urine UA NEG (NEG); Leukocyte Esterase Urine NEG (NEG); Nitrite Urine NEG (NEG); PH 7.5 (5.0-8.0); Specific Gravity - Urine 1.015 (1.005-1.025); Urine Blood NEG (NEG); Urine Ketones NEG (NEG); Urine Protein NEG (NEG-TRACE)
--- NOTE | 2021-08-25 22:34 | ED.MALEGU ---
HPI - Male Genitourinary General Chief complaint: Urogenital-Male Stated complaint: std check? Time Seen by Provider: 08/25/21 22:08 Source: patient Mode of arrival: ambulatory Limitations: no limitations History of Present Illness HPI Narrative: Patient comes to emergency room complaining of a painful vesicle in his penis 2 days ago. Patient complaining dysuria, no penile discharge. No fever chills, no hematuria. Patient states that wearing clothes-on hurts his penis quite a bit. Patient has tried topical antibiotics with no relief. Related Data Previous Rx's Medication Instructions Recorded acyclovir 400 mg tablet 400 mg PO TID 7 Days #21 tab 08/25/21 Allergies Allergy/AdvReac Type Severity Reaction Status Date / Time Penicillins [PENICILLINS] Allergy Intermediate Facial Verified 08/25/21 20:21 Swelling Review of Systems Review of Systems: Constitutional : No Weight loss, No Fever, No Chills, No Night Sweats, No Fatigue, No Malaise ENT/Mouth : No Hearing loss, No Ear Pain, No Nasal Congestion, No Sinus Pain, No Hoarseness, No sore throat, No Rhinorrhea, No Swallowing Difficulty Eyes: No Eye Pain, No Swelling, No Redness, No Foreign Body, No Discharge, No Vision Changes Cardiovascular : No Chest Pain, No SOB, No Dyspnea on Exertion, No Orthopnea, No Edema, No Palpitations Respiratory : No Cough, No Sputum, No Wheezing, No Smoke Exposure, No Dyspnea Gastrointestinal : No Nausea, No Vomiting, No Diarrhea, No Constipation, No abdominal Pain, No Hematochezia, No Melena Genitourinary : no irregular bleeding, No Dysuria, No Urinary Frequency, No Hematuria, No Urinary Incontinence, No Urgency, No Flank Pain, No Urinary Flow Changes, No Hesitancy, complaining of painful vesicle in the penis Musculoskeletal : No joint pain, No Myalgias, No Joint Swelling Skin : No Skin Lesions, No rash Neuro : No Weakness, No Numbness, No Paresthesias, No Loss of Consciousness, No Dizziness, No Headache Psych : No Anxiety/Panic, No Depression, No SI/HI/AH/VH, No Social Issues, Heme/Lymph: No Bruising, No Bleeding,No Lymphadenopathy Endocrine : No Polyuria, No Polydipsia, No Temperature Intolerance PMFSH Past Medical History Medical History Asthma Crushing skull injury Mass of left side of neck Social History Social History Housing: Apartment Patient Tobacco Use Status: Former Tobacco user Quit Date: 2019 e-Cigarette/Vaping Use: Never Used Second Hand Smoke Exposure: No Use of substances other than those prescribed or required for medical reasons: No Substance Use Type: Marijuana Advance Directives: No Advance Directives Information Provided: No service: No Current occupational status: employed Current occupational exposures/hazards: No Cognitive needs: No Hearing needs: No Vision needs: No Physical Exam Vital Signs: Vital Signs: Last Vital Signs Temp 98.4 F 08/25/21 20:21 Pulse 83 08/25/21 20:21 Resp 18 08/25/21 20:21 BP 113/77 08/25/21 20:21 Pulse Ox 97 08/25/21 20:21 BMI result Body Mass Index 34.9 Const: Other: Appearance: Alert. Oriented X3. No acute distress. Eyes: Pupils equal, round and reactive to light. ENT: Pharynx normal. Neck: Normal inspection. Neck supple. No lymph nodes noted. No crepitus CVS: Normal heart rate and rhythm. Pulses normal. Normal S1 and S2 Respiratory: No respiratory distress. Breath sounds normal. No Wheezing. No rales Abdomen: Soft and nontender. No rigidity. No distention. : No penile discharge, uncircumcised, 1 single vesicle in the lateral aspect of the right side of the glans Skin: Skin warm and dry. Normal skin color. Normal skin turgor. Extremities: No lower extremity edema. No Lacerations. No Rash Neuro: Oriented X 3. No motor deficit. No sensory deficit. Moving all extremities. No slurred speech. CN 2 through 12 grossly intact Psych: calm, cooperative, normal affect Course Course Course Narrative: I discussed with the patient that this is likely herpes. Patient will get further testing [facility] by his primary [facility] or [facility] collected urine, patient will be tested for gonorrhea and chlamydia. Patient declined prophylactic treatment. I discussed with the patient that it is not 100% clear that this is herpes but the likelihood is high. Patient states that the rubbing of his underwear in his genitals is extremely uncomfortable, his work is very physical and is concerned that the pain will get worse. Patient requesting 1 day off of work MDM - Male Genitourinary Lab Data Labs: Lab Results 08/25/21 Range/Units 20:32 Urine Color YELLOW Urine Appearance CLEAR Urine pH 7.5 (5.0-8.0) Ur Specific [place] 1.015 (1.005-1.025) Urine Protein NEG (NEG-TRACE) MG/DL Urine Glucose (UA) NEG (NEG) MG/DL Urine Ketones NEG (NEG) MG/DL Urine Blood NEG (NEG) Urine Nitrite NEG (NEG) Ur Leukocyte Esterase NEG (NEG) Discharge Plan Discharge Clinical Impression: Herpes genitalis Patient Disposition: Home, Self-Care Instructions: Genital Herpes Simplex (ED) Additional Instructions: Please follow-up with your primary care physician tomorrow. If you have any worsening or new symptoms, please return to the emergency room or call 911 Prescriptions: New acyclovir 400 mg tablet 400 mg PO TID 7 Days Qty: 21 0RF Stand Alone Forms: Work/School Release
[2021-08-25 22:37] VITALS: BP 121/83; PULSE 88; RESP 16; TEMP 36.8; O2SAT 99
[2021-08-26 05:25] LABS: CT PCR NOT DETECTED (Not Detect.); NG PCR NOT DETECTED (Not Detect.)
== END 2021-08-25 23:01 | disposition home or self-care (01) ==
PROVIDERS: Emergency Provider Emergency Medicine
DX: A60.00 Herpesviral infection of urogenital system, unspecified (principal)
CPT/HCPCS: 81003; 87491; 87591; 99283; 99284

== ENCOUNTER 2022-03-22 14:23 | Emergency (ER) | payer MEDICAID, SELFPAY ==
--- NOTE | ~2022-03-22 | XR_ITS ---
EXAMINATION: XR CHEST CLINICAL INFORMATION: Right arm pain. History of blood clot and lymphoma COMPARISON: Chest x-ray 07/29/2018 TECHNIQUE: 2 views of the chest were obtained. FINDINGS: Right IJ chest port tip terminates over the distal SVC. No airspace consolidation. No pleural effusion or pneumothorax. Cardiomediastinal silhouette is within normal limits as is the pulmonary vascularity. No acute osseous injury identified. XR/XR chest 2V IMPRESSION: No acute pulmonary process.
--- NOTE | ~2022-03-22 | US_ITS ---
EXAMINATION: US VENOUS WITH DOPPLER UPPER EXTREMITY, RIGHT CLINICAL INFORMATION: History of right port DVT now with right arm pain. COMPARISON: CT neck 06/24/2021 TECHNIQUE: Ultrasound of the upper extremity is performed using compression sonography and color and pulse Doppler flow with assessment of augmentation of flow. There is also imaging and Doppler assessment of the jugular and subclavian veins. Spectral analysis with color-flow imaging is performed. FINDINGS: There is heterogeneously echogenic occlusive thrombus distending the right internal jugular vein. The imaged right subclavian, axillary, brachial, basilic, and cephalic veins demonstrate normal compressibility and dopplerable flow. US/US venous duplex UE RT IMPRESSION: 1. Occlusive thrombus in the right internal jugular vein. 2. No evidence of DVT in the imaged veins of the right arm. This critical result was discussed with Fernanda BOYD at 4:01 PM on 03/22/2022 and it was ascertained that the content and urgency of the report was understood at the time of direct communication.
--- NOTE | ~2022-03-22 | XR_ITS ---
EXAMINATION: XR SHOULDER, RIGHT CLINICAL INFORMATION: Atraumatic right shoulder pain COMPARISON: None TECHNIQUE: Three views of the right shoulder. FINDINGS: No acute fracture or dislocation. No appreciable osseous lesion. Glenohumeral joint space and acromiohumeral interval are maintained. AC joint is congruent and intact. Visualized right lung is clear. Right IJ chest port noted. XR/XR shoulder RT min 2V IMPRESSION: No acute osseous injury.
[2022-03-22 15:05] VITALS: BP 117/69; PULSE 88; RESP 18; TEMP 36.8; O2SAT 99; BMI 33.4
--- NOTE | 2022-03-22 15:05 | ED_ITS ---
HPI - Extremity Problem General Chief complaint: General Medical <OLIVER Fernandez - Last Filed: 03/22/22 15:08> Stated complaint: Pain in R shoulder <OLIVER Fernandez - Last Filed: 03/22/22 15:08> Time Seen by Provider: 03/22/22 15:27 <OLIVER Fernandez Last Filed: 03/22/22 15:08> Source: patient <OLIVER Bond Last Filed: 03/22/22 17:32> Mode of arrival: ambulatory <OLIVER Bond Last Filed: 03/22/22 17:32> Limitations: no limitations <OLIVER Bond Last Filed: 03/22/22 17:32> History of Present Illness HPI Narrative: 31 yo male with history of recently diagnosed lymphoma on current chemotherapy at [facility] who presents to the ER for evaluation acute right-sided nontraumatic shoulder pain that started yesterday. Patient reports the pain is located at the top, outside portion of the shoulder and is worse when his arm is dangling at his side at rest. It improves with range of motion of the shoulder. He denies any injury. He states yesterday waiting woke up he also had some right-sided rib pain and axillary pain that has since resolved. No chest pain or shortness of breath. He recently had a port placed in his right chest and is where he gets chemotherapy. He states he was recently started on anticoagulation for a blood clot in his neck. he admits to missing a couple of doses at nighttime when he was 1st started on it but has been compliant as of late. He denies any swelling of the arm. No numbness or tingling. He called his doctor who advised come to the ER to rule out propagation of blood clot in t he upper extremity. <OLIVER Bond Last Filed: 03/22/22 17:32> MD Complaint: joint pain <LOIVER Bond - Last Filed: 03/22/22 17:32> Onset (ago): day(s) (1) <OLIVER Bond Last Filed: 03/22/22 17:32> Pain Consistency: intermittent <OLIVER Bond Last Filed: 03/22/22 17:32> Location: right and upper extremity <OLIVER Bond Last Filed: 03/22/22 17:32> Quality: aching <OLIVER Bond Last Filed: 03/22/22 17:32> Radiation: none <OLIVER Bond Last Filed: 03/22/22 17:32> Relieving factors: movement <OLIVER Bond Last Filed: 03/22/22 17:32> Exacerbating factors: rest <OLIVER Bond Last Filed: 03/22/22 17:32> Associated symptoms: denies other symptoms <OLIVER Bond Last Filed: 03/22/22 17:32> Related Data Home medications: Previous Rx's Medication Instructions Recorded acyclovir 400 mg tablet 400 mg PO TID 7 days #21 tabs 08/25/21 <OLIVER Fernandez Last Filed: 03/22/22 15:08> Allergies/Adverse reactions: Allergies Allergy/AdvReac Type Severity Reaction Status Date / Time Penicillins [PENICILLINS] Allergy Intermediate Facial Verified 03/22/22 15:05 Swelling <OLIVER Fernandez Last Filed: 03/22/22 15:08> Review of Systems Review of Systems: Constitutional: No Fever, No Chills ENT/Mouth: No sore throat, No Rhinorrhea Cardiovascular: No Chest Pain, No SOB, No Orthopnea, No Edema Respiratory: No Cough, No Sputum, No Wheezing, No dyspnea Gastrointestinal: No Nausea, No Vomiting, No Diarrhea, No abdominal Pain Musculoskeletal: + joint pain, No Myalgias Skin: No Skin Lesions, No rash Neuro: No Weakness, No Numbness, No Dizziness, No Headache Psych: No Anxiety/Panic, No Depression Heme/Lymph: No Bruising, No Lymphadenopathy <OLIVER Bond Last Filed: 03/22/22 17:32> [facility] Past Medical History Medical History: Medical History Asthma Crushing skull injury Mass of left side of neck <OLIVER Fernandez Last Filed: 03/22/22 15:08> Social History Social History: Social History Housing: Apartment Alcohol intake: never Patient Tobacco Use Status: Former Tobacco user Quit Date: 2019 Smoked in Last 30 Days: No e-Cigarette/Vaping Use: Never Used Second Hand Smoke Exposure: No Use of substances other than those prescribed or required for medical reasons: No Substance Use Type: Marijuana Advance Directives: No Advance Directives Information Provided: Yes service: No Current occupational status: employed Current occupational exposures/hazards: No Cognitive needs: No Hearing needs: No Vision needs: No <OLIVER Fernandez - Last Filed: 03/22/22 15:08> Physical Exam Vital Signs: Vital Signs: Last Vital Signs Temp 98.8 F 03/22/22 16:00 Pulse 85 03/22/22 16:00 Resp 16 03/22/22 16:00 BP 107/70 03/22/22 16:00 Pulse Ox 98 03/22/22 16:00 O2 Del Method 03/22/22 16:00 BMI result Body Mass Index 24.3 <OLIVER Fernandez - Last Filed: 03/22/22 15:08> Vital Signs: Last Vital Signs Temp 98.8 F 03/22/22 16:00 Pulse 85 03/22/22 16:00 Resp 16 03/22/22 16:00 BP 107/70 03/22/22 16:00 Pulse Ox 98 03/22/22 16:00 O2 Del Method 03/22/22 16:00 BMI result Body Mass Index 24.3 <OLIVER Bond - Last Filed: 03/22/22 17:32> Appearance: Alert. Oriented X3. No acute distress. Mild pallor Eyes: Pupils equal, round and reactive to light. ENT: Pharynx normal. Neck: Normal inspection. Right chest wall port in place, palpable up in to the venous system of the neck on the right side CVS: Normal heart rate and rhythm. Pulses normal. Respiratory: No respiratory distress. Breath sounds normal. Abdomen: Soft and nontender. +BS x4 Skin: Skin warm and dry. Normal skin color. Normal skin turgor. No rashes. Extremities: No lower extremity edema. Normal inspection of bilateral shoulders. No swelling of the upper extremities. There is mild tenderness of the AC joint. Normal active and passive range of motion of the right shoulder, right elbow and right wrist. 2+ radial pulse. Normal strength throughout. Negative empty can test. No posterior tenderness. Neuro: Oriented X 3. No motor deficit. No sensory deficit. <OLIVER Bond Last Filed: 03/22/22 17:32> Course Course Course Narrative: ZEINA- 15:06PM - 31yoM c PMHx of lymphoma currently on chemotherapy presenting to the ED with complaints of atraumatic right arm/shoulder pain/right rib/chest pain for the past few days worse today. Reports he is currently on Eliquis due to he sustain ed a clot where his poor was for chemo. He is taking the Eliquis as prescribed and took today. He denies any dizziness, change in vision, nausea/vomiting, shortness of breath or dyspnea on exertion orthopnea, extremity edema, recent falls or trauma, abdominal pain, back pain or lower extremity edema or calf tenderness or any other symptoms complaints or concerns at this time. Plan: Will obtain labs, EKG, chest x-ray, right shoulder x-ray and venous duplex ultrasound of right upper extremity. Patient is stable he will be sent back to the waiting room to be evaluated in the ED. <OLIVER Fernandez - Last Filed: 03/22/22 15:08> Reevaluation(s) Reevaluation #1: Patient seen and examined. He has tenderness of the lateral shoulder. Worse when at rest and improved with movement of the upper extremity. He has no weakness, numbness, tingling. Neurovascularly intact distally. Doubt acute DVT or propagating DVT but ultrasound is pending. X-ray of the shoulder is pending along with lab workup. Does seem to be cardiac in nature either. <OLIVER Bond Last Filed: 03/22/22 17:32> Reevaluation #2: Ultrasound showing occlusive thrombus in the right internal jugular ve in. No other DVT in the RUE. Patient states he has had a clot in the vein in my neck and is why he is on anticoagulation. Awaiting [facility] records to confirm this was all present previously and not new or worsening. <OLIVER Bond Last Filed: 03/22/22 17:32> Reevaluation #3: Patient wanting to go home. He states when he was told he had the blood clot that was a complete blockage of the vein in the neck. comfortable discharge home with continuing his Eliquis. He will follow-up with his oncologist. We talked about his blood results and his ultrasound results. He will follow-up with his provider next week. <OLIVER Bond - Last Filed: 03/22/22 17:32> Medical Decision Making Lab Data Result Diagrams: : 03/22/22 16:08 03/22/22 16:08 <OLIVER Fernandez - Last Filed: 03/22/22 15:08> Labs: Lab Results 03/22/22 03/22/22 03/22/22 Range/Units 16:08 16:08 16:08 WBC 2.8 L (4.8-10.8) X10*3/uL RBC 4.12 L (4.60-5.80) X10*6/uL Hgb 11.8 L (14.0-18.0) g/dl Hct 35.6 L (42.0-52.0) % MCV 86.4 (80.0-98.0) fL MCH 28.6 (27.0-33.0) pg MCHC 33.1 (31.0-36.0) g/dl RDW 14.3 (11.0-16.0) % Plt Count 236 (160-400) X10*3/uL MPV 10.7 (9.4-12.4) fL Immature Gran % (Auto) 1.1 H (0.0-0.4) % Neut % (Auto) 55.7 (45-73) % Lymph % (Auto) 32.7 (20-40) % Maverick % (Auto) 6.9 (2-11) % Eos % (Auto) 2.9 (0-4) % Baso % (Auto) 0.7 (0-2) % Lymph # (Auto) 0.9 L (1.2-4.9) X10*3/uL Maverick # (Auto) 0.2 (0.1-1.2) X10*3/uL Eos # (Auto) 0.1 (0.0-0.4) X10*3/uL Baso # (Auto) 0.0 (0.0-0.2) X10*3/uL Abs Immat Gran (auto) 0.03 (0.00-0.03) X10*3/uL Absolute Neuts (auto) 1.5 L (2.0-8.3) x10*3/uL Absolute Nucleated RBC 0.000 (0.0-0.012) X10*3/uL Nucleated RBC % (auto) 0.0 (0.0-0.2) /100WBC PT 12.4 (10.0-13.1) SEC INR 1.1 (0.9-1.1) Sodium 140 (135-145) mmol/L Potassium 4.0 (3.3-5.1) mmol/L Chloride 106 (96-108) mmol/L Carbon Dioxide 27 (22-29) mmol/L Anion Gap 11 L (12-20) BUN 12 (9-16) mg/dL Creatinine 0.77 (0.5-1.4) mg/dL Estim Creat Clear Calc 134.4 Estimated GFR > 60 Random Glucose 103 (60-115) mg/dL Calcium 9.6 (8.4-10.2) mg/dL Magnesium 1.8 (1.6-2.6) mg/dL Total Bilirubin 0.4 (0.0-1.0) mg/dL AST 20 (5-37) U/L ALT 38 (0-40) U/L Alkaline Phosphatase 64 (39-117) U/L Troponin I High Sens (<3.5-35.0) ng/L Total Protein 6.4 L (6.5-8.0) g/dL Albumin 4.1 (3.5-5.0) g/dL Influenza Type A (PCR) (Negative) Influenza Type B (PCR) (Negative) RSV RNA Qual (PCR) (Negative) SARS-CoV-2 RNA (RT-PCR) (Negative) 03/22/22 03/22/22 Range/Units 16:08 16:08 WBC (4.8-10.8) X10*3/uL RBC (4.60-5.80) X10*6/uL Hgb (14.0-18.0) g/dl Hct (42.0-52.0) % MCV (80.0-98.0) fL MCH (27.0-33.0) pg MCHC (31.0-36.0) g/dl RDW (11.0-16.0) % Plt Count (160-400) X10*3/uL MPV (9.4-12.4) fL Immature Gran % (Auto) (0.0-0.4) % Neut % (Auto) (45-73) % Lymph % (Auto) (20-40) % Maverick % (Auto) (2-11) % Eos % (Auto) (0-4) % Baso % (Auto) (0-2) % Lymph # (Auto) (1.2-4.9) X10*3/uL Maverick # (Auto) (0.1-1.2) X10*3/uL Eos # (Auto) (0.0-0.4) X10*3/uL Baso # (Auto) (0.0-0.2) X10*3/uL Abs Immat Gran (auto) (0.00-0.03) X10*3/uL Absolute Neuts (auto) (2.0-8.3) x10*3/uL Absolute Nucleated RBC (0.0-0.012) X10*3/uL Nucleated RBC % (auto) (0.0-0.2) /100WBC PT (10.0-13.1) SEC INR (0.9-1.1) Sodium (135-145) mmol/L Potassium (3.3-5.1) mmol/L Chloride (96-108) mmol/L Carbon Dioxide (22-29) mmol/L Anion Gap (12-20) BUN (9-16) mg/dL Creatinine (0.5-1.4) mg/dL Estim Creat Clear Calc Estimated GFR Random Glucose (60-115) mg/dL Calcium (8.4-10.2) mg/dL Magnesium (1.6-2.6) mg/dL Total Bilirubin (0.0-1.0) mg/dL AST (5-37) U/L ALT (0-40) U/L Alkaline Phosphatase (39-117) U/L Troponin I High Sens 6.8 (<3.5-35.0) ng/L Total Protein (6.5-8.0) g/dL Albumin (3.5-5.0) g/dL Influenza Type A (PCR) NEGATIVE (Negative) Influenza Type B (PCR) NEGATIVE (Negative) RSV RNA Qual (PCR) NEGATIVE (Negative) SARS-CoV-2 RNA (RT-PCR) NEGATIVE (Negative) <OLIVER Fernandez - Last Filed: 03/22/22 15:08> Lab Results 03/22/22 03/22/22 03/22/22 Range/Units 16:08 16:08 16:08 WBC 2.8 L (4.8-10.8) X10*3/uL RBC 4.12 L (4.60-5.80) X10*6/uL Hgb 11.8 L (14.0-18.0) g/dl Hct 35.6 L (42.0-52.0) % MCV 86.4 (80.0-98.0) fL MCH 28.6 (27.0-33.0) pg MCHC 33.1 (31.0-36.0) g/dl RDW 14.3 (11.0-16.0) % Plt Count 236 (160-400) X10*3/uL MPV 10.7 (9.4-12.4) fL Immature Gran % (Auto) 1.1 H (0.0-0.4) % Neut % (Auto) 55.7 (45-73) % Lymph % (Auto) 32.7 (20-40) % Maverick % (Auto) 6.9 (2-11) % Eos % (Auto) 2.9 (0-4) % Baso % (Auto) 0.7 (0-2) % Lymph # (Auto) 0.9 L (1.2-4.9) X10*3/uL Maverick # (Auto) 0.2 (0.1-1.2) X10*3/uL Eos # (Auto) 0.1 (0.0-0.4) X10*3/uL Baso # (Auto) 0.0 (0.0-0.2) X10*3/uL Abs Immat Gran (auto) 0.03 (0.00-0.03) X10*3/uL Absolute Neuts (auto) 1.5 L (2.0-8.3) x10*3/uL Absolute Nucleated RBC 0.000 (0.0-0.012) X10*3/uL Nucleated RBC % (auto) 0.0 (0.0-0.2) /100WBC PT 12.4 (10.0-13.1) SEC INR 1.1 (0.9-1.1) Sodium 140 (135-145) mmol/L Potassium 4.0 (3.3-5.1) mmol/L Chloride 106 (96-108) mmol/L Carbon Dioxide 27 (22-29) mmol/L Anion Gap 11 L (12-20) BUN 12 (9-16) mg/dL Creatinine 0.77 (0.5-1.4) mg/dL Estim Creat Clear Calc 134.4 Estimated GFR > 60 Random Glucose 103 (60-115) mg/dL Calcium 9.6 (8.4-10.2) mg/dL Magnesium 1.8 (1.6-2.6) mg/dL Total Bilirubin 0.4 (0.0-1.0) mg/dL AST 20 (5-37) U/L ALT 38 (0-40) U/L Alkaline Phosphatase 64 (39-117) U/L Troponin I High Sens (<3.5-35.0) ng/L Total Protein 6.4 L (6.5-8.0) g/dL Albumin 4.1 (3.5-5.0) g/dL Influenza Type A (PCR) (Negative) Influenza Type B (PCR) (Negative) RSV RNA Qual (PCR) (Negative) SARS-CoV-2 RNA (RT-PCR) (Negative) 03/22/22 03/22/22 Range/Units 16:08 16:08 WBC (4.8-10.8) X10*3/uL RBC (4.60-5.80) X10*6/uL Hgb (14.0-18.0) g/dl Hct (42.0-52.0) % MCV (80.0-98.0) fL MCH (27.0-33.0) pg MCHC (31.0-36.0) g/dl RDW (11.0-16.0) % Plt Count (160-400) X10*3/uL MPV (9.4-12.4) fL Immature Gran % (Auto) (0.0-0.4) % Neut % (Auto) (45-73) % Lymph % (Auto) (20-40) % Maverick % (Auto) (2-11) % Eos % (Auto) (0-4) % Baso % (Auto) (0-2) % Lymph # (Auto) (1.2-4.9) X10*3/uL Maverick # (Auto) (0.1-1.2) X10*3/uL Eos # (Auto) (0.0-0.4) X10*3/uL Baso # (Auto) (0.0-0.2) X10*3/uL Abs Immat Gran (auto) (0.00-0.03) X10*3/uL Absolute Neuts (auto) (2.0-8.3) x10*3/uL Absolute Nucleated RBC (0.0-0.012) X10*3/uL Nucleated RBC % (auto) (0.0-0.2) /100WBC PT (10.0-13.1) SEC INR (0.9-1.1) Sodium (135-145) mmol/L Potassium (3.3-5.1) mmol/L Chloride (96-108) mmol/L Carbon Dioxide (22-29) mmol/L Anion Gap (12-20) BUN (9-16) mg/dL Creatinine (0.5-1.4) mg/dL Estim Creat Clear Calc Estimated GFR Random Glucose (60-115) mg/dL Calcium (8.4-10.2) mg/dL Magnesium (1.6-2.6) mg/dL Total Bilirubin (0.0-1.0) mg/dL AST (5-37) U/L ALT (0-40) U/L Alkaline Phosphatase (39-117) U/L Troponin I High Sens 6.8 (<3.5-35.0) ng/L Total Protein (6.5-8.0) g/dL Albumin (3.5-5.0) g/dL Influenza Type A (PCR) NEGATIVE (Negative) Influenza Type B (PCR) NEGATIVE (Negative) RSV RNA Qual (PCR) NEGATIVE (Negative) SARS-CoV-2 RNA (RT-PCR) NEGATIVE (Negative) <OLIVER Bond - Last Filed: 03/22/22 17:32> Independent Interpretation I performed an independent interpretation of an: EKG <OLIVER Bond - Last Filed: 03/22/22 17:32> Interpretation: Normal sinus rhythm, ventricular rate 85 beats per minute, 1mm ST- elevation diffuse consistent with normal right early repolarization which is unchanged from prior back in 2017. <OLIVER Bond - Last Filed: 03/22/22 17:32> Radiology Impression Discussion of test interpretation with radiology: I discussed test interpretation with the radiologist <OLIVER Bond - Last Filed: 03/22/22 17:32> Radiologist Impression: Right IJ acute thrombus. <OLIVER Bond Last Filed: 03/22/22 17:32> Discharge Plan Discharge Clinical Impression: Acute shoulder pain, Neutropenia <OLIVER Fernandez Last Filed: 03/22/22 15:08> Patient Disposition: Home, Self-Care <OLIVER Fernandez Last Filed: 03/22/22 15:08> Instructions: Neutropenia (ED), Shoulder Pain (ED) <OLIVER Fernandez - Last Filed: 03/22/22 15:08> Additional Instructions: Your white blood cells were low at 2.8 with ANC of 150. This is low and likely due to your chemotherapy Follow up with your Oncologist. Your ultrasound today shower blood clot in your internal jugular vein but none in your arm. Your shoulder x-ray was normal. Take Tylenol as needed for shoulder pain. Continue your blood thinner as prescribed. If you develop new or worsening symptoms call 911 or come back to the ER for further evaluation. <OLIVER Fernandez - Last Filed: 03/22/22 15:08> Prescriptions: No Action acyclovir 400 mg tablet 400 mg PO TID 7 Days Qty: 21 0RF <OLIVER Fernandez Last Filed: 03/22/22 15:08> Interventions: ED Discharge Assessment Last Done: 03/22/22 17:33 <OLIVER Fernandez Last Filed: 03/22/22 15:08> Discharge Date/Time: 03/22/22 17:34 <OLIVER Fernandez Last Filed: 03/22/22 15:08>
--- NOTE | 2022-03-22 15:06 | ECG_ITS ---
Test Reason : GENERAL MEDICAL Blood Pressure : / mmHG Vent. Rate : 085 BPM Atrial Rate : 085 BPM P-R Int : 158 ms QRS Dur : 088 ms QT Int : 348 ms P-R-T Axes : 012 027 038 degrees QTc Int : 414 ms Normal sinus rhythm ST elevation, consider early repolarization Borderline ECG When compared with ECG of 03-MAR-2017 19:42, No significant change was found Referred By: Xiomara Marina Electronically Signed By:PHOENIX LAMBERT
[2022-03-22 15:51] VITALS: BP 112/78; PULSE 78; RESP 18; TEMP 36.8; O2SAT 92; BMI 24.3
[2022-03-22 16:00] VITALS: BP 107/70; PULSE 85; RESP 16; TEMP 37.1; O2SAT 98
[2022-03-22 16:14] LABS: MANUAL DIFF FLAG NO
[2022-03-22 16:26] LABS: INTERNATIONAL NORM RATIO 1.1 (0.9-1.1); Prothrombin Time 12.4 SEC (10.0-13.1)
[2022-03-22 16:31] LABS: Basophils Percent Auto 0.7 % (0-2); Eosinophils Absolute Auto 0.1 X10*3/uL (0.0-0.4); Eosinophils Percent Auto 2.9 % (0-4); Hematocrit 35.6 % (42.0-52.0); Hemoglobin 11.8 g/dl (14.0-18.0); Imm Gran Abs Auto 0.03 X10*3/uL (0.00-0.03); Imm Gran Pct Auto 1.1 % (0.0-0.4); Lymphocytes Absolute Auto 0.9 X10*3/uL (1.2-4.9); Lymphocytes Percent Auto 32.7 % (20-40); Mean Corpuscular HGB Conc 33.1 g/dl (31.0-36.0); Mean Corpuscular Hemoglobin 28.6 pg (27.0-33.0); Mean Corpuscular Volume 86.4 fL (80.0-98.0); Mean Platelet Volume 10.7 fL (9.4-12.4); Monocytes Absolute Auto 0.2 X10*3/uL (0.1-1.2); Monocytes Percent Auto 6.9 % (2-11); Neutrophils Absolute Auto 1.5 x10*3/uL (2.0-8.3); Neutrophils Percent Auto 55.7 % (45-73); Platelet Count 236 X10*3/uL (160-400); Red Blood Count 4.12 X10*6/uL (4.60-5.80); Red Cell Distribution Width 14.3 % (11.0-16.0); White Blood Count 2.8 X10*3/uL (4.8-10.8)
[2022-03-22 16:47] LABS: Alanine Aminotransferase 38 U/L (0-40); Albumin Level 4.1 g/dL (3.5-5.0); Alkaline Phosphatase 64 U/L (39-117); Anion Gap 11 (12-20); Aspartate Amino Transferase 20 U/L (5-37); Bilirubin Total 0.4 mg/dL (0.0-1.0); Blood Urea Nitrogen 12 mg/dL (9-16); Calcium 9.6 mg/dL (8.4-10.2); Carbon Dioxide 27 mmol/L (22-29); Chloride 106 mmol/L (96-108); Creatinine Clr Calc Pharmacy 134.4; Estimated Glomerular Filt Rate > 60; Glucose Random 103 mg/dL (60-115); Magnesium 1.8 mg/dL (1.6-2.6); Sodium 140 mmol/L (135-145); Total Protein 6.4 g/dL (6.5-8.0)
[2022-03-22 16:51] LABS: Troponin-I High Sensitivity 6.8 ng/L (<3.5-35.0)
[2022-03-22 17:01] LABS: Influenza A PCR NEGATIVE (Negative); Influenza B PCR NEGATIVE (Negative); Resp Syncy Virus RNA Qual PCR NEGATIVE (Negative); SARS COV2 PCR INHOUSE NEGATIVE (Negative)
== END 2022-03-22 17:34 | disposition home or self-care (01) ==
PROVIDERS: Physician Assistant Medical; Emergency Provider Emergency Medicine
DX: M25.511 Pain in right shoulder (principal); D70.9 Neutropenia, unspecified; I82.C21 Chronic embolism and thrombosis of right internal jugular vein; Z20.822 Contact with and (suspected) exposure to COVID-19; C85.90 Non-Hodgkin lymphoma, unspecified, unspecified site; Z92.21 Personal history of antineoplastic chemotherapy; Z79.01 Long term (current) use of anticoagulants
CPT/HCPCS: 0241U; 71046; 73030; 80053; 83735; 84484; 85025; 85610; 93005; 93971; 99284

== ENCOUNTER → 2022-12-12 09:12 | Outpatient (BNVA) | payer SELFPAY | PROVIDERS: Visit Provider Physician Assistant Medical | DX: Z02.79 Encounter for issue of other medical certificate (principal) ==

== ENCOUNTER 2024-07-25 15:38 | Emergency (ER) | payer MEDICAID, SELFPAY ==
[2024-07-25 16:13] VITALS: BP 143/95; PULSE 111; RESP 16; TEMP 36.9; O2SAT 99; BMI 31.6
--- NOTE | 2024-07-25 16:13 | ED_ITS ---
HPI - General Adult General Chief complaint: General Medical Stated complaint: pulled muscle -groin Time Seen by Provider: 07/25/24 18:51 Source: patient Mode of arrival: ambulatory Limitations: no limitations History of Present Illness ED Provider: Marti Pearce NP HPI narrative: Patient is a 34-year-old male who presents emergency department for evaluation, he reports that 3 days ago 07/23/2024 he was having sexual intercourse during which he noticed a sharp spastic pain to the left groin. [place] as though he pulled a muscle. 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 He has not tried any OTC medications for the pain thus far. Has not applied ice to the area. He denies any genitourinary symptoms or gastrointestinal symptoms. Denies any palpable lump to the groin. Pain is worse with flexion of the left hip to 90 degrees or adduction of the hip Related Data Previous Rx's ?Medication ?Instructions ?Recorded acyclovir 400 mg tablet 400 mg PO TID 7 days #21 tabs 08/25/21 ibuprofen 600 mg tablet 600 mg PO Q8H PRN fever or pain 07/25/24 #30 tabs Allergies Allergy/AdvReac Type Severity Reaction Status Date / Time Penicillins [PENICILLINS] Allergy Intermediate Facial Verified 07/25/24 16:14 Swelling Review of Systems Review of Systems: Yes all other systems are reviewed and are negative PMFSH Past Medical History Attestation statement: The following information was validated with the patient. Source: old records reviewed Medical History Mass of left side of neck Crushing skull injury Asthma Social History Social History Housing: Apartment Alcohol intake: never Patient Tobacco Use Status: Former Tobacco user e-Cigarette/Vaping Use: Never Used Second Hand Smoke Exposure: No Substance Use Type: Marijuana Advance Directives: No Advance Directives Information Provided: Yes service: No Current occupational status: employed Current occupational exposures/hazards: No Cognitive needs: No Hearing needs: No Vision needs: No Physical Exam ED Vital Signs: Vital Signs - 24 hr 07/25/24 16:13 07/25/24 18:00 Temperature 98.5 F 98.3 F Pulse Rate 111 H 77 Respiratory Rate 16 16 Blood Pressure 143/95 H 131/82 Pulse Oximetry 99 98 Oxygen Delivery Method Room Air Room Air BMI result Body Mass Index 31.6 Appearance: Alert.?Oriented to person, place and time. No acute distress.?Normal affect. CVS: Heart sounds normal. Normal heart rate and rhythm.? Pulses normal.?? Respiratory: No respiratory distress.? Lung sounds clear to auscultation bilaterally?? Abdomen: Soft and non-tender. Normoactive bowel sounds. No palpable masses or lumps within the groin Skin: Skin warm and dry.? Normal skin color.? ?? Extremities: No lower extremity edema.? No calf ttp?full range of motion to the bilateral hips. Neuro: Moves all extremities spontaneously. Sensation intact bilaterally. Ambulates with normal steady gait. Course Course Course Narrative: This is a rapid medical exam performed by Joshua Talamantes NP: Additional HPI, ROS, PE not included below will be deferred to primary provider. Patient is a 34-year-old male presenting with complaint of left groin pain x 2 days. Injured during intercourse. Denies difficulty urinating. Difficulty getting dressed. Denies testicular pain. Unable to visualize in triage due to privacy concerns. History of left neck mass in the past. Medical Decision Making Medical Decision Making MDM Narrative: Patient is a 34 old male who presents emergency department for evaluation of left groin pain of sudden onset during intercourse that he subjectively felt was a pulled muscle. Reports that the pain was still present and felt he could not go to work today due to the physical activity required for his job as per HPI. He is overall well-appearing. Has full range of motion to the left hip and lower extremity. There is no palpable masses or lumps within the groin to suggest a hernia. He has no associated genitourinary gastrointestinal symptoms. Has a benign abdominal examination. Pain is exacerbated with flexion of the hip to 90 degrees as well as adduction of the left lower extremity. Symptoms at this time favoring strain of the groin. We discussed conservative treatment, rest, ice, compression to the proximal thigh, use of NSAID. Will be provided with a work note and advised outpatient follow-up with primary care doctor. Reviewed worrisome signs and symptoms that would warrant re-evaluation emergency department. All questions answered. Differential Diagnosis Differential Diagnoses: The differential diagnosis associated with the presentation includes (See narrative above) External Record Review External record reviewed: Outpatient record Prescription Management I considered prescription management with: Pain Medication (NSAID) Discharge Plan Discharge Clinical Impression: Groin strain Patient Disposition: Home, Self-Care Instructions: Groin Strain (ED) Additional Instructions: Rest over the next few days, apply ice for 10-15 minutes 4-6 times daily, use elastic bandage for compression to the proximal thigh, You can take ibuprofen 200 mg, 3 tablets (600mg) every 6-8 hours as needed for pain, in addition to Tylenol 500 mg, 2 tablets (1,000mg) every 4-6 hours as needed for pain, but not to exceed 3 doses daily (3,000mg).? Follow-up with the primary care doctor. Prescriptions: New ibuprofen 600 mg tablet 600 mg PO Q8H PRN (Reason: fever or pain) Qty: 30 0RF No Action acyclovir 400 mg tablet 400 mg PO TID 7 Days Qty: 21 0RF Referrals: Physician,None [Primary Care Provider] - Stand Alone Forms: Work/School Release Print Language: Albanian
[2024-07-25 18:00] VITALS: BP 131/82; PULSE 77; RESP 16; TEMP 36.8; O2SAT 98
[2024-07-25] MEDS: Ketorolac Tromethamine 15 MG/ML VIAL IM (19:37)
[2024-07-25 19:47] VITALS: BP 131/82; PULSE 77; RESP 16; TEMP 36.8; O2SAT 98
== END 2024-07-25 19:47 | disposition home or self-care (01) ==
PROVIDERS: Emergency Provider Emergency Medicine Emergency Medical Services
DX: S39.011A Strain of muscle, fascia and tendon of abdomen, initial encounter (principal); R10.2 Pelvic and perineal pain; X58.XXXA Exposure to other specified factors, initial encounter; Y93.9 Activity, unspecified; Y92.9 Unspecified place or not applicable; Y99.8 Other external cause status
CPT/HCPCS: 96372; 99284; J1885